=== PATIENT | male | born 1985 | race Caucasian/White ===

== ENCOUNTER 2020-01-08 10:21 | Emergency (ER) | payer MEDICARE, OTHER | END 2020-01-08 11:36 | LOC: ERS 10:21 | DX: Z20.828 Contact with and (suspected) exposure to other viral communicable diseases (principal); J06.9 Acute upper respiratory infection, unspecified; M19.90 Unspecified osteoarthritis, unspecified site; F41.9 Anxiety disorder, unspecified; F17.210 Nicotine dependence, cigarettes, uncomplicated; Z79.899 Other long term (current) drug therapy | CPT/HCPCS: 87081; 87430; 87804; 99283; U0001 ==

== ENCOUNTER 2021-08-01 15:49 | Emergency (ER) | payer OTHER, SELFPAY ==
[2021-08-01 16:47] LABS: Hemoglobin 12.8 g/dL (14.0-18.0); Mean Corpuscular HGB CONC 35.4 g/dL (32.0-36.0); Mean Corpuscular Hemoglobin 39.6 pg (27.0-31.0); Mean Platelet Volume 8.8 fL (7.4-10.4); Platelet Count 156 thou/uL (130-400); RBC Distribution Width 13.1 % (11.5-14.5); Red Blood Cell (RBC) Count 3.23 mill/uL (4.70-6.10); White Blood Cell (WBC) Count 4.4 thou/uL (4.8-10.8)
[2021-08-01 17:02] LABS: ALT (SGPT) 77 U/L (8-55); AST (SGOT) 168 U/L (5-34); Acetaminophen Less than 6.0 mcg/mL (10.0-30.0); Albumin 3.6 g/dL (3.5-5.0); Alcohol Less than 10 mg/dL (Less than 10); Alkaline Phosphatase 96 U/L (40-110); Anion Gap 20 mmol/L (10-20); BUN (Urea Nitrogen) 5 mg/dL (8.9-20.6); Bilirubin, Total 1.3 mg/dL (0.2-1.2); Calc. Creatinine Clearance 0 mL/min (70-130); Carbon Dioxide 26 mmol/L (22-29); Chloride 94 mmol/L (98-107); Globulin 2.5 g/dL (2.4-3.5); Glucose 123 mg/dL (70-105); Protein, Total 6.1 g/dL (6.0-8.3); Salicylate Less than 8.0 mg/dL (15.0-30.0); Sodium 137 mmol/L (136-145)
[2021-08-01 17:05] LABS: #Lymphocytes 0.5 thou/uL (1.20-3.40); #Monocytes 0.4 thou/uL (0.11-0.59); #Neutrophils 3.5 thou/uL (1.40-6.50); %Basophils 0.8 % (0.0-1.0); %Eosinophils 0.1 % (0.0-10.0); %Lymphocytes 11.8 % (21.0-51.0); %Neutrophils 79.3 % (42.0-75.0); MDiff Complete? YES; Macrocytosis SLIGHT = 6-15 cells (100X) (0-5/hpf); Platelet Morphology Comment Appears Adequate
[2021-08-01 17:20] LABS: Amphetamine Not Detected (NotDetected); Barbiturates Screen Not Detected (NotDetected); Benzodiazepine Screen Detected (NotDetected); Cocaine Metabolite Screen Not Detected (NotDetected); Methadone Not Detected (NotDetected); Methamphetamine Not Detected (NotDetected); Opiate Screen Not Detected (NotDetected); Oxycodone Screen Not Detected (NotDetected); Phencyclidine (PCP) Not Detected (NotDetected); THC/Cannabinoid Screen Detected (NotDetected); Tricyclic Screen Not Detected (NotDetected)
[2021-08-01] MEDS ORDERED: Potassium Chloride 20 MEQ TAB ONE ×2 (18:12→18:15)
== END 2021-08-01 20:58 | disposition home or self-care (01) ==
LOC: ERS 15:49
DX: E87.6 Hypokalemia (principal); R74.01 Elevation of levels of liver transaminase levels; Z87.891 Personal history of nicotine dependence
CPT/HCPCS: 36415; 70450; 80053; 80306; 80307; 84484; 85025; 93005

== ENCOUNTER 2021-08-01 22:41 | Observation (INO) | payer OTHER, SELFPAY ==
[2021-08-02] MEDS ORDERED: Ondansetron PF 4 MG/2 ML Vial ONE (01:04)
[2021-08-02] MEDS ORDERED: levETIRAcetam in NS 100 ML ONE (01:45)
[2021-08-02] MEDS ORDERED: Morphine 4 MG/ML VIAL SLOW IVP PRN (04:30)
[2021-08-02] MEDS ORDERED: Acetaminophen 650 MG Suppository PR PRN (04:31)
[2021-08-02] MEDS ORDERED: Ondansetron ODT 4 MG TAB PO PRN (04:31)
[2021-08-02] MEDS ORDERED: Ondansetron PF 4 MG/2 ML Vial IVP PRN (04:31)
[2021-08-02] MEDS ORDERED: Acetaminophen 325 MG TAB PO PRN (04:31)
[2021-08-02] MEDS ORDERED: Morphine 4 MG/ML VIAL ONE (05:44)
[2021-08-02 05:53] LABS: #Monocytes 0.5 thou/uL (0.11-0.59); #Neutrophils 5.3 thou/uL (1.40-6.50); %Basophils 0.6 % (0.0-1.0); %Lymphocytes 14.7 % (21.0-51.0); %Monocytes 6.6 % (0.0-10.0); Hemoglobin 12.1 g/dL (14.0-18.0); Mean Corpuscular HGB CONC 35.5 g/dL (32.0-36.0); Mean Corpuscular Hemoglobin 39.4 pg (27.0-31.0); Mean Platelet Volume 9.4 fL (7.4-10.4); Platelet Count 163 thou/uL (130-400); RBC Distribution Width 13.1 % (11.5-14.5); Red Blood Cell (RBC) Count 3.07 mill/uL (4.70-6.10); White Blood Cell (WBC) Count 6.8 thou/uL (4.8-10.8)
[2021-08-02 06:01] LABS: Anion Gap 14 mmol/L (10-20); BUN (Urea Nitrogen) Less than 4 mg/dL (8.9-20.6); Calc. Creatinine Clearance 169 mL/min (70-130); Carbon Dioxide 29 mmol/L (22-29); Chloride 98 mmol/L (98-107); Glucose 89 mg/dL (70-105); Sodium 138 mmol/L (136-145)
[2021-08-02 06:10] LABS: Potassium 2.9 mmol/L (3.5-5.1)
[2021-08-02] MEDS ORDERED: Electrolyte Replacement Protocol 1 EACH FS PRN (06:15)
[2021-08-02 06:52] LABS: Magnesium 1.4 mg/dL (1.6-2.6)
[2021-08-02] MEDS ORDERED: Potassium Chloride 20 MEQ TAB PO SCH (07:00)
[2021-08-02] MEDS ORDERED: Potassium Chloride 20 MEQ TAB ONE (07:14)
[2021-08-02] MEDS ORDERED: Magnesium Sulfate 4 GM in Sodium Chloride 0.9% 250 ML 250 ML IVPB SCH (09:00)
[2021-08-03 07:57] LABS: #Basophils 0.1 thou/uL (0.0-0.2); #Eosinphils 0.1 thou/uL (0.0-0.7); #Lymphocytes 1.3 thou/uL (1.20-3.40); #Monocytes 0.5 thou/uL (0.11-0.59); #Neutrophils 3.9 thou/uL (1.40-6.50); %Basophils 1.3 % (0.0-1.0); %Eosinophils 1.8 % (0.0-10.0); %Neutrophils 65.8 % (42.0-75.0); Hemoglobin 12.9 g/dL (14.0-18.0); Mean Corpuscular HGB CONC 34.2 g/dL (32.0-36.0); Mean Corpuscular Hemoglobin 38.6 pg (27.0-31.0); Mean Platelet Volume 9.2 fL (7.4-10.4); Platelet Count 174 thou/uL (130-400); RBC Distribution Width 13.1 % (11.5-14.5); Red Blood Cell (RBC) Count 3.35 mill/uL (4.70-6.10); White Blood Cell (WBC) Count 5.9 thou/uL (4.8-10.8)
[2021-08-03 08:10] LABS: Anion Gap 22 mmol/L (10-20); BUN (Urea Nitrogen) Less than 4 mg/dL (8.9-20.6); Calc. Creatinine Clearance 159 mL/min (70-130); Calcium 8.6 mg/dL (7.8-10.44); Carbon Dioxide 19 mmol/L (22-29); Chloride 100 mmol/L (98-107); Potassium 3.8 mmol/L (3.5-5.1); Sodium 137 mmol/L (136-145)
[2021-08-03 08:22] LABS: Glucose 57 mg/dL (70-105)
== END 2021-08-02 01:57 | disposition home or self-care (01) ==
LOC: ERS 22:41 → ERHOLD 08-02 01:57
PROVIDERS: ADMIT Student in an Organized Health Care Education/Training Program; ATTEND Student in an Organized Health Care Education/Training Program
DX: R56.9 Unspecified convulsions (principal); M41.9 Scoliosis, unspecified; M19.90 Unspecified osteoarthritis, unspecified site; F17.210 Nicotine dependence, cigarettes, uncomplicated
CPT/HCPCS: 80048; 83735; 85025; J1953; J2270; J2405

== ENCOUNTER 2021-08-02 00:16 | Inpatient (IN) | payer OTHER, SELFPAY ==
[2021-08-02] MEDS ORDERED: Acetaminophen 500 MG TAB ONE (00:53)
[2021-08-02 09:16] LABS: SARS-CoV-2 NAA Rapid Test Not Detected (NotDetected)
[2021-08-02] MEDS ORDERED: Magnevist 469MG/ML 20 ML VIAL ONE (10:30)
[2021-08-02] MEDS ORDERED: Lorazepam 2 MG/ML VIAL SLOW IVP PRN (10:55)
[2021-08-02] MEDS ORDERED: Morphine 4 MG/ML VIAL SLOW IVP SCH (11:00)
[2021-08-02] MEDS ORDERED: Electrolyte Replacement Protocol 1 EACH FS SCH (11:00)
[2021-08-02] MEDS ORDERED: Magnesium Sulfate 4 GM in Sodium Chloride 0.9% 250 ML 250 ML IVPB SCH (11:15)
[2021-08-02] MEDS ORDERED: Electrolyte Replacement Protocol FS PRN (11:15)
[2021-08-02] MEDS ORDERED: Potassium Chloride 40 MEQ in Sodium Chloride 0.9% 250 ML 250 ML IVPB SCH (11:15)
[2021-08-02 11:46] LABS: Anion Gap 15 mmol/L (10-20); BUN (Urea Nitrogen) Less than 4 mg/dL (8.9-20.6); Calc. Creatinine Clearance 0 mL/min (70-130); Calcium 8.6 mg/dL (7.8-10.44); Carbon Dioxide 27 mmol/L (22-29); Chloride 98 mmol/L (98-107); Glucose 72 mg/dL (70-105); Sodium 137 mmol/L (136-145)
[2021-08-02 11:51] LABS: Potassium 2.9 mmol/L (3.5-5.1)
[2021-08-02] MEDS ORDERED: Potassium Chloride 20 MEQ TAB PO SCH ×3 (12:30→22:15)
[2021-08-02] MEDS: Nicotine 14 MG PATCH TD SCH (18:05)
[2021-08-02] MEDS ORDERED: HYDROcodone/Acetaminophen 5/325 mg Tablet PO PRN ×2 (18:34)
[2021-08-02 21:26] LABS: Potassium 3.5 mmol/L (3.5-5.1)
[2021-08-03] MEDS ORDERED: levETIRAcetam in NS 500 MG in Premix Bag 1 BAG IVPB SCH (01:30)
[2021-08-03] MEDS ORDERED: Lorazepam 2 MG/ML VIAL SLOW IVP PRN (02:57)
[2021-08-03] MEDS ORDERED: Sterile Water 10 ML VIAL FS PRN ×2 (03:00→16:45)
[2021-08-03] MEDS ORDERED: Ziprasidone 20 MG VIAL IM SCH (03:00)
[2021-08-03] MEDS: levETIRAcetam in NS 500 MG in Premix Bag 1 BAG IVPB SCH ×2 (07:55→20:32)
[2021-08-03 08:12] LABS: Magnesium 1.9 mg/dL (1.6-2.6)
[2021-08-03] MEDS ORDERED: FLU VACC QS2021-22(6MOS UP)/PF 60 MCG/0.5 ML SYRINGE IM ONE (09:00)
[2021-08-03] MEDS ORDERED: Magnesium 2 GM/50 ML 2 GM in Premix Bag 1 BAG IVPB SCH (11:00)
[2021-08-03] MEDS ORDERED: Haloperidol Lactate 5 MG/ML VIAL SLOW IVP PRN (13:53)
[2021-08-03] MEDS ORDERED: Valproate Sodium 250 MG in Sodium Chloride 0.9% 100 ML IVPB SCH (14:45)
[2021-08-03 15:50] LABS: Amphetamine Not Detected (NotDetected); Barbiturates Screen Not Detected (NotDetected); Benzodiazepine Screen Detected (NotDetected); Cocaine Metabolite Screen Not Detected (NotDetected); Methadone Not Detected (NotDetected); Methamphetamine Not Detected (NotDetected); Opiate Screen Detected (NotDetected); Oxycodone Screen Not Detected (NotDetected); Phencyclidine (PCP) Not Detected (NotDetected); THC/Cannabinoid Screen Detected (NotDetected); Tricyclic Screen Not Detected (NotDetected)
[2021-08-03] MEDS ORDERED: Ziprasidone 20 MG VIAL IM PRN (15:57)
[2021-08-03] MEDS: Nicotine 14 MG PATCH TD SCH (20:33)
[2021-08-03] MEDS: ALPRAZolam 0.5 MG TAB PO PRN (20:33)
[2021-08-03] MEDS: Valproate Sodium 250 MG in Sodium Chloride 0.9% 100 ML IVPB SCH (21:31)
[2021-08-04 05:42] LABS: #Eosinphils 0.1 thou/uL (0.0-0.7); #Lymphocytes 1.4 thou/uL (1.20-3.40); #Monocytes 0.6 thou/uL (0.11-0.59); #Neutrophils 3.5 thou/uL (1.40-6.50); %Basophils 0.8 % (0.0-1.0); %Eosinophils 2.4 % (0.0-10.0); %Monocytes 10.4 % (0.0-10.0); %Neutrophils 61.4 % (42.0-75.0); Hemoglobin 13.8 g/dL (14.0-18.0); Mean Corpuscular HGB CONC 34.8 g/dL (32.0-36.0); Mean Corpuscular Hemoglobin 39.2 pg (27.0-31.0); Mean Platelet Volume 8.9 fL (7.4-10.4); Platelet Count 186 thou/uL (130-400); RBC Distribution Width 12.9 % (11.5-14.5); Red Blood Cell (RBC) Count 3.52 mill/uL (4.70-6.10); White Blood Cell (WBC) Count 5.6 thou/uL (4.8-10.8)
[2021-08-04 06:06] LABS: Anion Gap 15 mmol/L (10-20); BUN (Urea Nitrogen) 4 mg/dL (8.9-20.6); Calc. Creatinine Clearance 0 mL/min (70-130); Calcium 8.9 mg/dL (7.8-10.44); Carbon Dioxide 27 mmol/L (22-29); Chloride 100 mmol/L (98-107); Glucose 101 mg/dL (70-105); Potassium 3.5 mmol/L (3.5-5.1); Sodium 138 mmol/L (136-145)
[2021-08-04] MEDS ORDERED: Potassium Chloride 20 MEQ TAB PO SCH (08:00)
[2021-08-04] MEDS: Valproate Sodium 250 MG in Sodium Chloride 0.9% 100 ML IVPB SCH (08:57)
[2021-08-04] MEDS ORDERED: ALPRAZOLAM 2 MG PO SCH ×2 (09:00)
[2021-08-04] MEDS ORDERED: levETIRAcetam 500 MG TAB PO SCH (09:00)
[2021-08-04 11:21] VITALS: BP 163/95; TEMP 98.5
[2021-08-04] MEDS: ALPRAZolam 0.5 MG TAB PO PRN (11:41)
== END 2021-08-04 16:18 | disposition home or self-care (01) | DRG 101 ==
LOC: SUATTDRO 00:16 → ERS 00:16 → ERHOLD 07:36 → 2SE 12:53 → OBSVTOIN 08-03 13:29 → 2SW 08-03 16:04
PROVIDERS: ADMIT Student in an Organized Health Care Education/Training Program; ATTEND Internal Medicine
DX: G40.909 Epilepsy, unspecified, not intractable, without status epilepticus (principal); M41.9 Scoliosis, unspecified; M19.90 Unspecified osteoarthritis, unspecified site; F19.10 Other psychoactive substance abuse, uncomplicated; F41.0 Panic disorder [episodic paroxysmal anxiety]; E87.6 Hypokalemia; F17.210 Nicotine dependence, cigarettes, uncomplicated; Z20.822 Contact with and (suspected) exposure to COVID-19; Z88.8 Allergy status to other drugs, medicaments and biological substances
CPT/HCPCS: 36415; 36416; 70450; 70553; 72125; 80048; 80053; 80306; 80307; 83735; 84484; 85025; 93005; 95816; 95819; 95957; A9579; J1630; J1953; J2060; J2270; J2405; J3475; J3486; J3490; U0002

== ENCOUNTER 2021-11-09 15:30 | Emergency (ER) | payer SELFPAY ==
[2021-11-09] MEDS ORDERED: Lorazepam 2 MG/ML VIAL ONE (15:46)
[2021-11-09 16:05] LABS: #Monocytes 1.1 thou/uL (0.11-0.59); #Neutrophils 7.6 thou/uL (1.40-6.50); %Basophils 0.3 % (0.0-1.0); %Lymphocytes 9.8 % (21.0-51.0); %Monocytes 11.3 % (0.0-10.0); %Neutrophils 78.6 % (42.0-75.0); Hemoglobin 12.6 g/dL (14.0-18.0); Mean Corpuscular HGB CONC 35.4 g/dL (32.0-36.0); Mean Corpuscular Hemoglobin 37.3 pg (27.0-31.0); Mean Platelet Volume 8.2 fL (7.4-10.4); Platelet Count 173 thou/uL (130-400); RBC Distribution Width 14.5 % (11.5-14.5); Red Blood Cell (RBC) Count 3.39 mill/uL (4.70-6.10); White Blood Cell (WBC) Count 9.7 thou/uL (4.8-10.8)
[2021-11-09 16:28] LABS: ALT (SGPT) 106 U/L (8-55); AST (SGOT) 193 U/L (5-34); Albumin 4.2 g/dL (3.5-5.0); Alkaline Phosphatase 89 U/L (40-110); Anion Gap 22 mmol/L (10-20); BUN (Urea Nitrogen) 17 mg/dL (8.9-20.6); Calc. Creatinine Clearance 0 mL/min (70-130); Calcium 9.1 mg/dL (7.8-10.44); Carbon Dioxide 22 mmol/L (22-29); Chloride 99 mmol/L (98-107); Globulin 2.8 g/dL (2.4-3.5); Glucose 83 mg/dL (70-105); Potassium 3.5 mmol/L (3.5-5.1); Sodium 139 mmol/L (136-145)
[2021-11-09 17:26] LABS: Bilirubin Moderate (Negative); Blood, Urine Small (Negative); Glucose, Urine (Dipstick) Negative (Negative); Ketone, Urine > or equal to 80 mg/dL (Negative); Leukocyte Negative (Negative); Nitrite Negative (Negative); Protein, Urine (Dipstick) 30 mg/dL (Neg-Trace)
[2021-11-09 17:31] LABS: Specific Gravity, Urine Greater/Equal 1.030 (1.005-1.030)
[2021-11-09 17:32] LABS: Clarity Clear (Clear)
[2021-11-09 17:34] LABS: Amphetamine Detected (NotDetected); Bacteria/HPF 1+ HPF (None Seen); Barbiturates Screen Not Detected (NotDetected); Benzodiazepine Screen Detected (NotDetected); Cocaine Metabolite Screen Not Detected (NotDetected); Methadone Not Detected (NotDetected); Methamphetamine Detected (NotDetected); Opiate Screen Not Detected (NotDetected); Oxycodone Screen Not Detected (NotDetected); Phencyclidine (PCP) Not Detected (NotDetected); THC/Cannabinoid Screen Detected (NotDetected); Tricyclic Screen Not Detected (NotDetected)
== END 2021-11-09 18:18 | disposition home or self-care (01) ==
LOC: ERS 15:30
DX: F15.20 Other stimulant dependence, uncomplicated (principal); F12.90 Cannabis use, unspecified, uncomplicated; M19.90 Unspecified osteoarthritis, unspecified site; F17.210 Nicotine dependence, cigarettes, uncomplicated
CPT/HCPCS: 36415; 80053; 80306; 81003; 81015; 85025; 93005; 96374; J2060

== ENCOUNTER 2021-11-09 23:59 | Inpatient (IN) | payer SELFPAY ==
[2021-11-10 00:31] LABS: #Basophils 0.1 thou/uL (0.0-0.2); #Lymphocytes 1.1 thou/uL (1.20-3.40); #Monocytes 0.9 thou/uL (0.11-0.59); #Neutrophils 12.2 thou/uL (1.40-6.50); %Basophils 0.4 % (0.0-1.0); %Eosinophils 0.1 % (0.0-10.0); %Lymphocytes 7.9 % (21.0-51.0); %Monocytes 6.4 % (0.0-10.0); %Neutrophils 85.2 % (42.0-75.0); Hemoglobin 13.7 g/dL (14.0-18.0); Mean Corpuscular HGB CONC 35.5 g/dL (32.0-36.0); Mean Corpuscular Hemoglobin 37.4 pg (27.0-31.0); Mean Platelet Volume 8.5 fL (7.4-10.4); Platelet Count 189 thou/uL (130-400); RBC Distribution Width 14.6 % (11.5-14.5); Red Blood Cell (RBC) Count 3.66 mill/uL (4.70-6.10); White Blood Cell (WBC) Count 14.4 thou/uL (4.8-10.8)
[2021-11-10 00:51] LABS: Acetaminophen Less than 6.0 mcg/mL (10.0-30.0); Alcohol Less than 10 mg/dL (Less than 10); Salicylate Less than 8.0 mg/dL (15.0-30.0)
[2021-11-10 00:52] LABS: ALT (SGPT) 120 U/L (8-55); AST (SGOT) 263 U/L (5-34); Albumin 4.2 g/dL (3.5-5.0); Alkaline Phosphatase 89 U/L (40-110); Anion Gap 27 mmol/L (10-20); BUN (Urea Nitrogen) 20 mg/dL (8.9-20.6); Bilirubin, Total 2.5 mg/dL (0.2-1.2); Calc. Creatinine Clearance 0 mL/min (70-130); Calcium 9.2 mg/dL (7.8-10.44); Carbon Dioxide 18 mmol/L (22-29); Chloride 99 mmol/L (98-107); Potassium 3.9 mmol/L (3.5-5.1); Protein, Total 7.2 g/dL (6.0-8.3); Sodium 140 mmol/L (136-145)
[2021-11-10 00:55] LABS: Glucose 59 mg/dL (70-105)
[2021-11-10] MEDS ORDERED: Dextrose 50% Abboject 50 ML SYRINGE ONE (01:01)
[2021-11-10] MEDS ORDERED: Boostrix 0.5 ML (Tdap) VIAL ONE (01:59)
[2021-11-10 03:12] VITALS: BMI 19.4
[2021-11-10] MEDS ORDERED: Ondansetron ODT 4 MG TAB SL PRN (03:45)
[2021-11-10] MEDS ORDERED: Ondansetron PF 4 MG/2 ML Vial IVP PRN (03:45)
[2021-11-10] MEDS ORDERED: Sodium Chloride 0.9% 1,000 ML IV SCH (04:15)
[2021-11-10] MEDS ORDERED: OLANZapine 10 MG VIAL IM PRN (04:46)
[2021-11-10] MEDS ORDERED: Sterile Water 10 ML VIAL FS PRN ×2 (05:00→22:15)
[2021-11-10 07:31] LABS: #Lymphocytes 1.4 thou/uL (1.20-3.40); #Monocytes 1.1 thou/uL (0.11-0.59); #Neutrophils 9.8 thou/uL (1.40-6.50); %Basophils 0.1 % (0.0-1.0); %Eosinophils 0.1 % (0.0-10.0); %Lymphocytes 11.3 % (21.0-51.0); %Monocytes 8.8 % (0.0-10.0); %Neutrophils 79.7 % (42.0-75.0); Hemoglobin 12.2 g/dL (14.0-18.0); Mean Corpuscular HGB CONC 34.8 g/dL (32.0-36.0); Mean Corpuscular Hemoglobin 36.5 pg (27.0-31.0); Mean Platelet Volume 8.7 fL (7.4-10.4); Platelet Count 185 thou/uL (130-400); RBC Distribution Width 14.5 % (11.5-14.5); Red Blood Cell (RBC) Count 3.34 mill/uL (4.70-6.10); White Blood Cell (WBC) Count 12.3 thou/uL (4.8-10.8)
[2021-11-10 07:40] LABS: Anion Gap 22 mmol/L (10-20); BUN (Urea Nitrogen) 18 mg/dL (8.9-20.6); Calc. Creatinine Clearance 105 mL/min (70-130); Carbon Dioxide 21 mmol/L (22-29); Chloride 98 mmol/L (98-107); Glucose 97 mg/dL (70-105); Potassium 3.5 mmol/L (3.5-5.1); Sodium 137 mmol/L (136-145)
[2021-11-10 08:06] LABS: CK (CPK) 8811 U/L (30-200)
[2021-11-10] MEDS: levETIRAcetam in NS 500 MG in Premix Bag 1 BAG IVPB SCH ×2 (08:43→20:29)
[2021-11-10] MEDS: Enoxaparin Sodium 40 MG/0.4 ML SYRINGE SC SCH (08:47)
[2021-11-10 09:07] LABS: Magnesium 1.8 mg/dL (1.6-2.6); Phosphorus 3.2 mg/dL (2.3-4.7)
[2021-11-10 09:14] LABS: Troponin I 0.017 ng/mL (< 0.028)
[2021-11-10] MEDS ORDERED: Magnesium Sulfate 2 GM in Sodium Chloride 0.9% 100 ML IVPB SCH (09:15)
[2021-11-10] MEDS ORDERED: Magnesium 2 GM/50 ML 2 GM in Premix Bag 1 BAG IVPB SCH (09:30)
[2021-11-10] MEDS: Sodium Chloride 0.9% 1,000 ML IV SCH ×2 (10:21→17:09)
[2021-11-10] MEDS ORDERED: Lorazepam 0.5 MG TAB PO SCH ×2 (10:45→18:15)
[2021-11-10 14:04] LABS: SARS-CoV-2 PCR by NAA Not Detected (NotDetected)
[2021-11-10] MEDS: Lidocaine 5% Patch TD SCH (18:05)
[2021-11-10] MEDS: Nicotine 14 MG PATCH TD SCH (22:21)
[2021-11-10] MEDS ORDERED: Ziprasidone 20 MG VIAL IM SCH (22:30)
[2021-11-10] MEDS: Lorazepam 2 MG/ML VIAL SLOW IVP PRN (22:37)
[2021-11-11] MEDS: Lorazepam 2 MG/ML VIAL SLOW IVP PRN ×3 (00:42→15:11)
[2021-11-11] MEDS: Sodium Chloride 0.9% 1,000 ML IV SCH ×3 (02:15→22:41)
[2021-11-11] MEDS ORDERED: Dextrose 10% in Water 1,000 ML IV SCH (03:30)
[2021-11-11 06:02] LABS: #Eosinphils 0.1 thou/uL (0.0-0.7); #Lymphocytes 1.9 thou/uL (1.20-3.40); #Monocytes 0.6 thou/uL (0.11-0.59); #Neutrophils 3.7 thou/uL (1.40-6.50); %Basophils 0.8 % (0.0-1.0); %Eosinophils 0.9 % (0.0-10.0); %Lymphocytes 29.5 % (21.0-51.0); %Monocytes 9.9 % (0.0-10.0); %Neutrophils 58.9 % (42.0-75.0); Hemoglobin 10.8 g/dL (14.0-18.0); Mean Corpuscular HGB CONC 34.2 g/dL (32.0-36.0); Mean Corpuscular Hemoglobin 36.9 pg (27.0-31.0); Mean Platelet Volume 8.4 fL (7.4-10.4); Platelet Count 152 thou/uL (130-400); RBC Distribution Width 14.6 % (11.5-14.5); Red Blood Cell (RBC) Count 2.92 mill/uL (4.70-6.10); White Blood Cell (WBC) Count 6.3 thou/uL (4.8-10.8)
[2021-11-11 06:33] LABS: ALT (SGPT) 85 U/L (8-55); AST (SGOT) 175 U/L (5-34); Albumin 3.2 g/dL (3.5-5.0); Alkaline Phosphatase 64 U/L (40-110); BUN (Urea Nitrogen) 10 mg/dL (8.9-20.6); CK (CPK) 3767 U/L (30-200); Calc. Creatinine Clearance 129 mL/min (70-130); Calcium 7.9 mg/dL (7.8-10.44); Carbon Dioxide 24 mmol/L (22-29); Chloride 102 mmol/L (98-107); Glucose 87 mg/dL (70-105); Magnesium 1.9 mg/dL (1.6-2.6); Phosphorus 2.4 mg/dL (2.3-4.7); Protein, Total 5.2 g/dL (6.0-8.3); Sodium 137 mmol/L (136-145)
[2021-11-11 06:34] LABS: Anion Gap 15 mmol/L (10-20)
[2021-11-11] MEDS: Transdermal Patch Removal TOP SCH (06:38)
[2021-11-11] MEDS: ALPRAZolam 0.25 MG TAB PO PRN ×2 (08:47→18:53)
[2021-11-11] MEDS: levETIRAcetam in NS 500 MG in Premix Bag 1 BAG IVPB SCH ×2 (08:48→21:08)
[2021-11-11] MEDS: Enoxaparin Sodium 40 MG/0.4 ML SYRINGE SC SCH (08:52)
[2021-11-11] MEDS: Potassium Chloride 20 MEQ TAB PO SCH ×2 (14:37→17:48)
[2021-11-11] MEDS ORDERED: Potassium Bicarbonate/Cit Ac 20 MEQ TAB PO SCH (17:45)
[2021-11-11] MEDS: Lidocaine 5% Patch TD SCH (18:22)
[2021-11-11] MEDS: Nicotine 14 MG PATCH TD SCH (22:38)
[2021-11-12] MEDS: ALPRAZolam 0.25 MG TAB PO PRN ×2 (00:55→06:41)
[2021-11-12] MEDS: Transdermal Patch Removal TOP SCH (05:32)
[2021-11-12 05:37] LABS: #Eosinphils 0.1 thou/uL (0.0-0.7); #Lymphocytes 1.6 thou/uL (1.20-3.40); #Monocytes 0.6 thou/uL (0.11-0.59); #Neutrophils 2.6 thou/uL (1.40-6.50); %Basophils 0.9 % (0.0-1.0); %Eosinophils 1.3 % (0.0-10.0); %Lymphocytes 32.8 % (21.0-51.0); %Monocytes 11.7 % (0.0-10.0); %Neutrophils 53.3 % (42.0-75.0); Hemoglobin 9.6 g/dL (14.0-18.0); Mean Corpuscular HGB CONC 29.7 g/dL (32.0-36.0); Mean Corpuscular Hemoglobin 32.6 pg (27.0-31.0); Mean Platelet Volume 8.4 fL (7.4-10.4); Platelet Count 172 thou/uL (130-400); RBC Distribution Width 14.5 % (11.5-14.5); Red Blood Cell (RBC) Count 2.93 mill/uL (4.70-6.10); White Blood Cell (WBC) Count 4.9 thou/uL (4.8-10.8)
[2021-11-12 05:52] LABS: ALT (SGPT) 114 U/L (8-55); AST (SGOT) 236 U/L (5-34); Albumin 3.1 g/dL (3.5-5.0); Alkaline Phosphatase 62 U/L (40-110); Anion Gap 13 mmol/L (10-20); BUN (Urea Nitrogen) 5 mg/dL (8.9-20.6); Bilirubin, Total 1.1 mg/dL (0.2-1.2); CK (CPK) 1524 U/L (30-200); Calc. Creatinine Clearance 156 mL/min (70-130); Calcium 7.8 mg/dL (7.8-10.44); Carbon Dioxide 24 mmol/L (22-29); Chloride 102 mmol/L (98-107); Globulin 2.2 g/dL (2.4-3.5); Glucose 89 mg/dL (70-105); Protein, Total 5.3 g/dL (6.0-8.3); Sodium 136 mmol/L (136-145)
[2021-11-12 06:06] LABS: Potassium 2.9 mmol/L (3.5-5.1)
[2021-11-12] MEDS ORDERED: Potassium Chloride 20 MEQ TAB PO SCH ×2 (06:30→10:00)
[2021-11-12] MEDS: levETIRAcetam in NS 500 MG in Premix Bag 1 BAG IVPB SCH (08:52)
[2021-11-12] MEDS: Enoxaparin Sodium 40 MG/0.4 ML SYRINGE SC SCH (08:52)
[2021-11-12] MEDS ORDERED: Benzocaine (Dental) 7 GM TUBE TOP PRN (10:52)
[2021-11-12] MEDS: Sodium Chloride 0.9% 1,000 ML IV SCH (12:53)
[2021-11-12 14:11] VITALS: BP 147/93; TEMP 97.4
== END 2021-11-12 13:34 | disposition home or self-care (01) | DRG 896 ==
LOC: ERS 23:59 → T4-A 11-10 01:51 → OBSVTOIN 11-10 08:44
PROVIDERS: ADMIT Student in an Organized Health Care Education/Training Program; ATTEND Internal Medicine
DX: F19.10 Other psychoactive substance abuse, uncomplicated (principal); G92.8 Other toxic encephalopathy; M62.82 Rhabdomyolysis; F23 Brief psychotic disorder; E87.2 Acidosis; Z20.822 Contact with and (suspected) exposure to COVID-19; M19.90 Unspecified osteoarthritis, unspecified site; G40.909 Epilepsy, unspecified, not intractable, without status epilepticus; F15.10 Other stimulant abuse, uncomplicated; F12.10 Cannabis abuse, uncomplicated; F13.10 Sedative, hypnotic or anxiolytic abuse, uncomplicated; E16.2 Hypoglycemia, unspecified; M41.9 Scoliosis, unspecified; E87.6 Hypokalemia; E88.09 Other disorders of plasma-protein metabolism, not elsewhere classified; T68.XXXA Hypothermia, initial encounter; R44.1 Visual hallucinations; Z88.8 Allergy status to other drugs, medicaments and biological substances; Z79.899 Other long term (current) drug therapy; Z88.5 Allergy status to narcotic agent; Z88.6 Allergy status to analgesic agent; Z78.1 Physical restraint status
CPT/HCPCS: 36415; 36416; 70450; 72125; 80053; 80307; 82550; 83735; 84100; 84443; 84484; 85025; 90471; 90715; 96374; G0378; J1650; J1953; J2060; J3475; J3486; J7050; U0003; U0005

== ENCOUNTER 2022-09-04 23:11 | Inpatient (IN) | payer SELFPAY ==
[2022-09-04] MEDS ORDERED: HYDROmorphone 0.5 MG/0.5 ML SYRINGE ONE (23:54)
[2022-09-05 00:29] LABS: #Basophils 0.1 thou/uL (0.0-0.2); #Eosinphils 0.2 thou/uL (0.0-0.7); #Monocytes 0.5 thou/uL (0.11-0.59); #Neutrophils 5.7 thou/uL (1.40-6.50); %Basophils 0.7 % (0.0-1.0); %Eosinophils 2.7 % (0.0-10.0); %Neutrophils 76.5 % (42.0-75.0); Hemoglobin 9.1 g/dL (14.0-18.0); Mean Corpuscular HGB CONC 32.4 g/dL (32.0-36.0); Mean Corpuscular Hemoglobin 31.2 pg (27.0-31.0); Mean Corpuscular Volume 96.3 fl (78.0-98.0); Mean Platelet Volume 7.6 fL (7.4-10.4); Platelet Count 223 10x3/uL (130-400); RBC Distribution Width 13.1 % (11.5-14.5); Red Blood Cell (RBC) Count 2.93 mill/uL (4.70-6.10); White Blood Cell (WBC) Count 7.4 10x3/uL (4.8-10.8)
[2022-09-05 00:51] LABS: ALT (SGPT) 8 U/L (8-55); AST (SGOT) 11 U/L (5-34); Albumin 3.2 g/dL (3.5-5.0); Alkaline Phosphatase 76 U/L (40-110); Anion Gap 9 mmol/L (10-20); BUN (Urea Nitrogen) 11 mg/dL (8.9-20.6); Bilirubin, Total 0.6 mg/dL (0.2-1.2); Calc. Creatinine Clearance 0 mL/min (70-130); Calcium 8.5 mg/dL (7.8-10.44); Carbon Dioxide 24 mmol/L (22-29); Chloride 108 mmol/L (98-107); Estimated GFR 121; Globulin 2.2 g/dL (2.4-3.5); Glucose 92 mg/dL (70-105); Potassium 3.1 mmol/L (3.5-5.1); Protein, Total 5.4 g/dL (6.0-8.3); Sodium 138 mmol/L (136-145)
[2022-09-05] MEDS ORDERED: Ondansetron ODT 4 MG TAB PO PRN (01:39)
[2022-09-05] MEDS ORDERED: Ondansetron PF 4 MG/2 ML Vial IVP PRN (01:39)
[2022-09-05] MEDS ORDERED: Sodium Chloride 0.9% 1,000 ML IV SCH (01:45)
[2022-09-05] MEDS ORDERED: Electrolyte Replacement Protocol 1 EACH FS SCH (02:00)
[2022-09-05] MEDS ORDERED: FENTANYL 50 MCG/ML 1 ML VIAL ONE (02:23)
[2022-09-05] MEDS ORDERED: Morphine 4 MG/ML VIAL ONE (02:24)
[2022-09-05] MEDS: Morphine 4 MG/ML VIAL SLOW IVP PRN ×3 (02:25→16:06)
[2022-09-05] MEDS: FENTANYL 50 MCG/ML 1 ML VIAL SLOW IVP PRN ×5 (02:30→20:17)
[2022-09-05 04:42] LABS: SARS-CoV-2 NAA Rapid Test Not Detected (NotDetected)
[2022-09-05 05:06] VITALS: BMI 16.6
[2022-09-05] MEDS: Dextrose 5 % And 0.9 % NaCl 1,000 ML IV SCH ×2 (05:34→12:50)
[2022-09-05] MEDS: Potassium Chloride 20 MEQ in Premix Bag 1 BAG IVPB SCH ×2 (05:36→08:27)
[2022-09-05 06:35] LABS: #Eosinphils 0.2 thou/uL (0.0-0.7); #Lymphocytes 0.7 thou/uL (1.20-3.40); #Monocytes 0.4 thou/uL (0.11-0.59); #Neutrophils 5.7 thou/uL (1.40-6.50); %Basophils 0.6 % (0.0-1.0); %Eosinophils 3.4 % (0.0-10.0); %Lymphocytes 10.3 % (21.0-51.0); %Monocytes 5.8 % (0.0-10.0); %Neutrophils 79.9 % (42.0-75.0); Hemoglobin 9.9 g/dL (14.0-18.0); Mean Platelet Volume 8.2 fL (7.4-10.4); Platelet Count 231 10x3/uL (130-400); RBC Distribution Width 13.2 % (11.5-14.5); Red Blood Cell (RBC) Count 3.18 mill/uL (4.70-6.10); White Blood Cell (WBC) Count 7.1 10x3/uL (4.8-10.8)
[2022-09-05 07:01] LABS: Anion Gap 12 mmol/L (10-20); BUN (Urea Nitrogen) 8 mg/dL (8.9-20.6); Calc. Creatinine Clearance 105 mL/min (70-130); Calcium 8.9 mg/dL (7.8-10.44); Carbon Dioxide 23 mmol/L (22-29); Chloride 106 mmol/L (98-107); Estimated GFR 125; Glucose 92 mg/dL (70-105); Iron 88 ug/dL (65-175); Iron Binding Capacity, Total 290 mcg/dL (261-462); Magnesium 1.5 mg/dL (1.6-2.6); Potassium 3.5 mmol/L (3.5-5.1); Sodium 137 mmol/L (136-145)
[2022-09-05 07:21] LABS: Ferritin 15.4 ng/mL (22-322)
[2022-09-05] MEDS ORDERED: Potassium Chloride 20 MEQ in Premix Bag 1 BAG IVPB SCH (07:30)
[2022-09-05] MEDS ORDERED: Magnesium 2 GM/50 ML(in water) 2 GM in Premix Bag 1 BAG IVPB SCH (08:00)
[2022-09-05 12:24] LABS: Potassium 3.9 mmol/L (3.5-5.1)
[2022-09-05] MEDS ORDERED: Dextrose 5 % And 0.9 % NaCl 1,000 ML IV SCH (15:45)
[2022-09-05] MEDS ORDERED: METHADONE PO SCH (17:45)
[2022-09-05] MEDS ORDERED: HYDROMORPHONE SLOW IVP PRN (17:46)
[2022-09-05] MEDS ORDERED: [UNRECOGNIZED DRUG - OTHER] SLOW IVP PRN (17:46)
[2022-09-05] MEDS ORDERED: Naloxone HCl 0.4 mg/ml Vial IV PRN (17:49)
[2022-09-05] MEDS ORDERED: Morphine 4 MG/ML VIAL SLOW IVP PRN (17:50)
[2022-09-05] MEDS ORDERED: GABAPENTIN 250 MG/5 ML PO SCH (21:00)
[2022-09-05] MEDS: METHadone HCl 10 MG TAB PO SCH (22:10)
[2022-09-06] MEDS: FENTANYL 50 MCG/ML 1 ML VIAL SLOW IVP PRN ×5 (02:21→16:07)
[2022-09-06] MEDS: METHadone HCl 10 MG TAB PO SCH ×2 (05:16→13:51)
[2022-09-06] MEDS ORDERED: CEFAZOLIN 1 GM VIAL ONE (11:00)
[2022-09-06] MEDS ORDERED: Sodium Chloride 0.9% 100 ML ONE (11:00)
[2022-09-06] MEDS ORDERED: PROPOFOL 200 MG/20 ML VIAL ONE (11:14)
[2022-09-06] MEDS ORDERED: FENTANYL 50 MCG/ML 1 ML VIAL ONE ×2 (11:50→11:58)
[2022-09-06 17:01] VITALS: BP 132/80; TEMP 98.1
== END 2022-09-06 17:20 | disposition home or self-care (01) | DRG 394 ==
LOC: ERS 23:11 → ERHOLD 09-05 01:42 → OBSVTOIN 09-05 01:43 → SURG B 09-05 04:50
PROVIDERS: ADMIT Internal Medicine; ATTEND Family Medicine
PROC: 0DH63UZ Insertion of Feeding Device into Stomach, Percutaneous Approach (ICD-10-PCS; principal; 2022-09-06)
DX: K94.23 Gastrostomy malfunction (principal); E44.0 Moderate protein-calorie malnutrition; Z68.1 Body mass index [BMI] 19.9 or less, adult; Y83.8 Other surgical procedures as the cause of abnormal reaction of the patient, or of later complication, without mention of misadventure at the time of the procedure; Z20.822 Contact with and (suspected) exposure to COVID-19; C02.9 Malignant neoplasm of tongue, unspecified; E87.6 Hypokalemia; D64.9 Anemia, unspecified; R13.12 Dysphagia, oropharyngeal phase; K22.70 Barrett's esophagus without dysplasia; K44.9 Diaphragmatic hernia without obstruction or gangrene; Z88.5 Allergy status to narcotic agent; Z88.8 Allergy status to other drugs, medicaments and biological substances; Z79.899 Other long term (current) drug therapy; Z59.00 Homelessness unspecified; Z87.891 Personal history of nicotine dependence
CPT/HCPCS: 36415; 82607; 82728; 83540; 83550; 83735; 96374; J0690; J1170; J2270; J2704; J3010; J3475; J3480; J3490; J7042; U0002

== ENCOUNTER 2023-03-20 12:25 | Emergency (ER) | payer OTHER ==
[2023-03-20 12:50] LABS: #Monocytes 0.9 thou/uL (0.11-0.59); #Neutrophils 11.8 thou/uL (1.40-6.50); %Basophils 0.2 % (0.0-1.0); %Eosinophils 0.1 % (0.0-10.0); %Lymphocytes 3.4 % (21.0-51.0); %Monocytes 6.6 % (0.0-10.0); %Neutrophils 89.3 % (42.0-75.0); Hemoglobin 7.2 g/dL (14.0-18.0); Mean Corpuscular HGB CONC 30.8 g/dL (32.0-36.0); Mean Corpuscular Hemoglobin 26.2 pg (27.0-31.0); Mean Corpuscular Volume 85.1 fl (78.0-98.0); Mean Platelet Volume 10.9 fL (7.4-10.4); Platelet Count 589 10x3/uL (130-400); RBC Distribution Width 17.9 % (11.5-14.5); Red Blood Cell (RBC) Count 2.75 mill/uL (4.70-6.10); White Blood Cell (WBC) Count 13.3 10x3/uL (4.8-10.8)
[2023-03-20 13:05] LABS: INR-International Normal Ratio 1.3; PTT 34.8 sec (22.9-36.1); Prothrombin Time 16.2 sec (12.0-14.7)
[2023-03-20 13:22] LABS: ALT (SGPT) 34 U/L (8-55); AST (SGOT) 38 U/L (5-34); Albumin 2.7 g/dL (3.5-5.0); Alkaline Phosphatase 758 U/L (40-110); Anion Gap 11 mmol/L (10-20); BUN (Urea Nitrogen) 27 mg/dL (8.9-20.6); Bilirubin, Total 0.2 mg/dL (0.2-1.2); Calc. Creatinine Clearance 0 mL/min (70-130); Calcium 12.7 mg/dL (7.8-10.44); Carbon Dioxide 29 mmol/L (22-29); Chloride 94 mmol/L (98-107); Estimated GFR 129; Globulin 4.2 g/dL (2.4-3.5); Glucose 120 mg/dL (70-105); Protein, Total 6.9 g/dL (6.0-8.3); Sodium 130 mmol/L (136-145)
[2023-03-20 13:38] LABS: Bacteria/HPF None Seen HPF (None Seen); Bilirubin Negative (Negative); Blood, Urine Negative (Negative); CAUTI Indications for Culture Dysuria,urgency,freq; Clarity Clear (Clear); Glucose, Urine (Dipstick) Normal (Negative); Ketone, Urine Negative (Negative); Leukocyte Negative Leu/uL (Negative); Nitrite Negative (Negative); Protein, Urine (Dipstick) Negative (Neg-Trace); RBC/HPF 0-3 HPF (0-3); Specific Gravity, Urine 1.015 (1.002-1.036); Squamous Epithelial None Seen HPF (0-3); Urobilinogen Normal mg/dL (Less than 2); WBC/HPF 0-3 HPF (0-3)
[2023-03-20 13:39] LABS: Urine Culture Reflex No No
[2023-03-20] MEDS ORDERED: fentaNYL 50 mcg/mL 1 mL Vial ONE (13:54)
== END 2023-03-20 14:54 | disposition home or self-care (01) ==
LOC: ERS 12:25
DX: D64.9 Anemia, unspecified (principal); C02.9 Malignant neoplasm of tongue, unspecified; D72.829 Elevated white blood cell count, unspecified
CPT/HCPCS: 36415; 36416; 36430; 71045; 80053; 81001; 83605; 84484; 85025; 85610; 85730; 86850; 86900; 86901; 87040; 93005; 94760; 96374; J3010; P9016